=== PATIENT | male | born 1990 | race Caucasian/White ===

== ENCOUNTER 2019-04-05 19:18 | Emergency (ER) | payer SELFPAY ==
[~2019-04-05] VITALS: Ht 177.8 cm; Wt 147.9 kg
[2019-04-05 19:22] VITALS: BP 150/98
--- NOTE | 2019-04-05 19:22 | NUR ---
PT AMBULATED TO [facility]. ACCOMPANIED BY [place] [employer].
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
--- NOTE | 2019-04-05 19:52 | NUR ---
PATIENT EXAMINED BY DR. DIXON. PATIENT MEDICALLY CLEARED AND RELEASED IN CUSTODY IN STABLE CONDITION. ORIGINAL PRE-BOOK FORM GIVEN TO [place] [employer] OFFICER.
[2019-04-05 20:53] VITALS: BP 150/98
== END 2019-04-05 19:52 ==
LOC: MED 19:18
DX: Z02.89 Encounter for other administrative examinations (principal); V49.49XA Driver injured in collision with other motor vehicles in traffic accident, initial encounter; Y93.89 Activity, other specified; Y92.488 Other paved roadways as the place of occurrence of the external cause; Y99.8 Other external cause status
CPT/HCPCS: 99283